=== PATIENT | male | born 1970 | race Caucasian/White ===

== ENCOUNTER 2016-10-12 07:46 | Observation (INO) | payer OTHER ==
[~2016-10-12] VITALS: Ht 180.3 cm; Wt 109.9 kg
[2016-10-12] VITALS (12 sets, daily range): BP systolic 124–160; BP diastolic 55–102; PULSE 62–88; RESP 14–22; O2SAT 94–97
[~2016-10-12 07:46] MED LIST: IBUP800T28 PO; OMEP20CA11 PO
--- NOTE | 2016-10-12 08:07 | ED.REPORT ---
HPI-Chest Pain 40 and Over Date of Service Oct 12, 2016 ED Provider: Noble Castaneda MD Patient is a 46 year old male with a history of hypertension and a minor DE with cardiac stent placement who presents to the ED complaining of chest pain over the past three weeks that is similar to pain associated with prior DE. He describes the pain as a heavy pressure and tightness on his chest that worsened markedly at 0600 this morning.The patient states that the pain radiates to his back. Associated symptoms include shortness of breath, weight gain, nausea, cough for the past six months, lightheadedness, dizziness and stress. He denies vomiting. Patient reports that he did not take his nitro because it makes him dizzy and gives him a headache. Prior to arrival to the ED, the patient took 81mg of ASA. The patient's father's side has a history of heart disease. Nursing Notes Stated Complaint: CHEST PAIN Chief Complaint: Chest Pain Nursing Notes Reviewed: Yes Allergies: Coded Allergies: erythromycin base (Verified Allergy, Unknown, 03/07/15) niacin (Verified Allergy, Unknown, 03/07/15) Scheduled Aspirin (Aspirin) 81 Mg Tablet 81 MG PO DAILY Atorvastatin (Lipitor) 40 Mg Tablet 40 MG PO HS Carvedilol (Carvedilol) 12.5 Mg Tablet 12.5 MG PO BID Clopidogrel Bisulfate (Plavix) 75 Mg Tablet 75 MG PO DAILY Ranitidine (Ranitidine) 150 Mg Capsule 150 MG PO BID General Time Seen by MD: 08:02 Chief Complaint Chest pain Hx Obtained From: Patient Arrived By: Walk-in Sudden in Onset?: Yes Onset Occurred: More than a week ago... (3 weeks) Symptom Duration: Intermittent Location: : Substernal Quality: Painful, Pressure Radiation: : Back Severity: Maximum: Pain level 7 out of 10 Recent Healthcare: Recent doctor visit Similar Sx Previous: Yes Past Medical History Past Medical History "Mild DE" - last year Hypertension CAD Hyperlipidemia Bipolar illness Past Surgical History left anterior descending stent placement cardiac cath Multiple Sclerosis spinal fusion 4-5-6 hip surgery Family History Reports: Coronary artery disease Smoking History Never Smoker Social History Alcohol Use: "Social" Drug Use: Denies drug use, In recovery Other Social History: Local resident 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 Physical Exam Initial Vital Signs Vital Signs (First) Date Time Temp Pulse Resp B/P Pulse Ox O2 Delivery O2 Flow Rate FiO2 10/12/16 07:50 36.3 88 18 160/93 97 Room Air Initial VS: Reviewed General/Constitutional: Awake, Alert Respiratory / Chest: Atraumatic, Breath sounds NL, Breath sounds = bilat, No respiratory distress Cardiovascular: Heart rate NL, Regular rhythm, Heart sounds NL Abdomen: Soft, Non-tender Neck: Supple LOWER EXTREMITIES: lower extremity edema Skin: Atraumatic, Color NL, No rash, Warm, Dry Neurologic: Oriented X3, Speech NL, No motor deficits, No sensory deficits Psychiatric: Affect NL, Mood NL Head / Eyes: Atraumatic, Normocephalic, PERRL, EOMI ENT: Airway patent, Mucous membranes moist Interpretation & Diagnostics Lab Results Interpretation Result Diagram: 10/12/16 0800 10/12/16 0800 Test 10/12/16 08:00 10/12/16 09:36 White Blood Count 8.4th/mm3 (3.8-10.1) Red Blood Count 5.21mil/mm3 (4.40-5.80) Hemoglobin 15.7g/dL (13.8-17.2) Hematocrit 45.2% (41.0-50.0) Mean Corpuscular Volume 86.8fL (81-100) Mean Corpuscular Hemoglobin 30.1pg (27.0-35.0) Mean Corpuscular Hemoglobin Concent 34.7% (32.0-37.0) Red Cell Distribution Width 12.4% (12.3-15.4) Platelet Count 213bil/L (150-400) Neutrophils (%) (Auto) 64.6% (40-74) Lymphocytes (%) (Auto) 20.2% (14-46) Monocytes (%) (Auto) 11.9% (4-12) Eosinophils (%) (Auto) 2.3% (0-5) Basophils (%) (Auto) 0.4% (0-3) Sodium Level 138mEq/L (134-144) Potassium Level 4.0mEq/L (3.5-5.2) Chloride Level 102mEq/L (97-108) Carbon Dioxide Level 22mmol/L (18-29) Blood Urea Nitrogen 10mg/dL (6-24) Creatinine 0.86mg/dL (0.76-1.27) Estimat Glomerular Filtration Rate 101mL/min (>59) Glucose Level 205mg/dL (60-99) Calcium Level 9.2mg/dL (8.5-10.1) Magnesium Level 1.9mg/dL (1.6-2.6) Total Bilirubin 0.8mg/dL (0.0-1.2) Aspartate Amino Transf (AST/SGOT) 28U/L (0-50) Alanine Aminotransferase (ALT/SGPT) 40U/L (0-44) Alkaline Phosphatase 86U/L (25-150) Troponin T 0.010ug/L (0.0-0.011) Total Protein 7.2g/dL (6.4-8.4) Albumin 4.4g/dL (3.4-5.0) Activated Partial Thromboplast Time 30.3sec (22.8-33.0) ECG Interpretation ECG Interpretation: Ventricular premature complex aberrant conduction of SV complex Time: 08:00 Interpreted by: ED physician Normal ECG Interpretation: Normal rate (82), Normal sinus rhythm X-Ray Chest Interpretation Chest Xray Interpretation: IMPRESSION: Acute disease is not found in the semi-upright portable chest. Cause of pain is not identified. Dictated by: Jostin Ramos M.D. on 10/12/2016 at 8:37 Approved by: Jostin Ramos M.D. on 10/12/2016 at 8:38 View: Portable, 1 view Interpretation / Wet Read by: Interpret - Radiologist Re-Eval/Medical Decision Med Decision/Clinical Course 46-year-old male history of CAD, stent placed in April 2016 at outside hospital presenting with chest pain that woke him up this morning. He reports it is the same pain he had when he had his stent placed. His chest pain is resolved or he still reports some chest tension. He has been getting chest tension quite often the last week with some episodes of chest pain as well. Not relieved with nitroglycerin or morphine here. No EKG changes. First set troponin is negative. Discussed with liaison officer and we will admit for ACS rule out on heparin drip. Source of Hx: Old records Time of Eval: 09:49 Re-Evaluation/Progress Note: Discussed lab and radiology results and need for admission. Patient is amenable to the plan. All other questions addressed. Consultation #1: Referral / Consult Name: Munir Raygoza MD Consulted With: Cardiology Call Returned at: 09:17 Billboard Poster: Agrees with eval, Agrees with plan Note: Admit. Start heparin drip. Consultation #2: Referral / Consult Name: Quinton Kim MD Consulted With: Hospitalist Call Returned at: 10:19 Billboard Poster: Agrees with eval, Agrees with plan, Accepts admit Counseled Regarding: Diagnosis, Lab results, Need for admission Discharge & Departure Primary Impression: Chest pain Disposition: ADMITTED TO HOSPITAL Discharge Condition All VS Reviewed: Yes Condition: Stable Referrals: NOPCP (PCP) Crit Care Except Billable Proc Time Spent: 30-74 minutes Services Performed: Patient management by me, Time spent at bedside, Reviewing test results, Reviewing imaging, Discussing patient care, Documentation in record Scribe Attestation Portions of this note were transcribed by Suzy Roberto and Stu Granado. I, Dr. Castaneda personally performed the history, physical exam and medical decision-making; I reviewed and confirmed the accuracy of the information in the transcribed note. Signed by: Suzy Roberto and Stu Granado, Scribe, and 10:30 Noble Castaneda MD Oct 12, 2016 08:07 Yazmin Roberto Oct 12, 2016 08:11 STU GRANADO Oct 12, 2016 09:18
[2016-10-12 08:15] LABS: BASOPHILS % (AUTO) 0.4 % (0-3); EOSINOPHILS % (AUTO) 2.3 % (0-5); MONOCYTES % (AUTO) 11.9 % (4-12); Mean Corpuscular Hemoglobin 30.1 pg (27.0-35.0); Mean Corpuscular Volume 86.8 fL (81-100); NEUTROPHILS % (AUTO) 64.6 % (40-74); Platelet Count 213 bil/L (150-400)
[2016-10-12] MEDS ORDERED: CARV12.52 PO (08:25)
[2016-10-12] MEDS ORDERED: CLOP75TA3 PO (08:25)
[2016-10-12] MEDS ORDERED: LIP40 PO (08:26)
[2016-10-12] MEDS ORDERED: ASPI-973 PO (08:27)
[2016-10-12] MEDS ORDERED: RANI150C4 PO (08:27)
[2016-10-12 08:38] LABS: TROPONIN T 0.01 ug/L (0.0-0.011)
--- NOTE | 2016-10-12 08:45 | DRSVH ---
PROCEDURE: X-RAY CHEST ONE VIEW, PORTABLE ([id number]) INDICATIONS: cp TECHNIQUE: One view of the chest was acquired. COMPARISON: [facility], CR, XR CHEST 2VW, 08/16/2016, 17:24. FINDINGS: Surgical changes and devices: There's been previous cervical thoracic spine surgery anteriorly as not ed by a plate and screws. electronic device monitor leads are seen over the chest. Lungs and pleura: No pleural effusions or pneumothorax. Lungs are clear. Mediastinum: Mediastinal contours appear normal. Heart size is normal. Bones and chest wall: No suspicious bony lesions. Overlying soft tissues appear unremarkable. IMPRESSION: Acute disease is not found in the semi-upright portable chest. Cause of pain is not ident ified. Dictated by: Jostin Ramos M.D. on 10/12/2016 at 8:37 Approved by: Jostin Ramos M.D. on 10/12/2016 at 8:38
[2016-10-12 08:50] LABS: Magnesium 1.9 mg/dL (1.6-2.6)
[2016-10-12] MEDS: Ondansetron 2 mg/mL 2 mL Inj IVPUSH PRN ×5 (08:57→18:21)
[2016-10-12] MEDS ORDERED: Heparin 5,000 Unit/mL Inj IVPUSH ONE (09:35)
[2016-10-12] MEDS ORDERED: Heparin 25K Unit/500mL 0.45 NS 25,000 UNIT in IV Premix 1 EACH IV ONE (09:35)
[2016-10-12] MEDS ORDERED: Alum-Mag Hydrox-Simeth 30 mL Suspension PO PRN ×2 (10:25→11:30)
[2016-10-12] MEDS ORDERED: Ondansetron 2 mg/mL 2 mL Inj IVPUSH PRN (10:25)
[2016-10-12] MEDS: 0.9% Sodium Chloride 1,000 ML IV SCH (11:26)
[2016-10-12] MEDS ORDERED: Polyethylene Glycol (PEG) 17 Gm Powder PO PRN (11:30)
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
[2016-10-12] MEDS ORDERED: Heparin 25K Unit/500mL 0.45 NS 25,000 UNIT in IV Premix 1 EACH IV SCH (15:50)
[2016-10-12] MEDS ORDERED: Heparin 5,000 Unit/mL Inj IVPUSH PRN (15:50)
--- NOTE | 2016-10-12 16:21 | NUR ---
[place] [facility] Patient report given to [facility] nurse from [facility]. Patient transferred to [facility] room 3012 at 1421 via gurney from ED. Patient transferred to bed independently. Patient vitals stable patient on Heparin drip. Patient had no skin issues noted.
[2016-10-12] MEDS: Sodium Chloride LOK Flush 10 mL Syringe IVFLUSH SCH ×2 (16:30→22:46)
--- NOTE | 2016-10-12 18:06 | NUR ---
Chest pressure Patient reported chest pressure of 7/10. SL Nitro was administered X1 and lowered pressure to 6/10. Patient refused a second dose worrying about headache. Patient had excessive stress and commotion in room from family at that time. It was mentioned to patient and family that the environment needed to be more relaxed and soon patient chest pressure decreased to 5/10.
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
[2016-10-12] MEDS: Senna-Docusate 8.6-50 mg Tablet PO PRN (19:49)
[2016-10-13] VITALS (7 sets, daily range): BP systolic 108–139; BP diastolic 66–94; PULSE 64–91; RESP 18–20; O2SAT 94–97
[2016-10-13] MEDS ORDERED: LORazepam 0.5 mg Tablet PO ONE (00:40)
[2016-10-13] MEDS: 0.9% Sodium Chloride 1,000 ML IV SCH ×2 (02:22→16:32)
[2016-10-13] MEDS: diphenhydrAMINE 25 mg Capsule PO PRN (03:16)
--- NOTE | 2016-10-13 03:28 | NUR ---
Chest Pain Pt reported chest pain at beginning of shift. Prior shift RN reported SL nitro to be effective. This was offered to PT and Pt declined, reported that the nitro was only minimally effective and that his chest pain was a 6/10, but that the fabienne had given him a 10/10 head ache. Pt was given 2mg of morphine. This helped his pain but did not resolve it entirely. Pt was later given another 2 mg of morphine IV and this did eliminate his pain. Later on in shift Pt c/o chest pain again and received 4mg of morphine IV and this was effective and eliminated his pain. Pt has not required any further dosing of morphine so far this shift.
[2016-10-13 04:10] LABS: BASOPHILS % (AUTO) 0.4 % (0-3); EOSINOPHILS % (AUTO) 2.9 % (0-5); MONOCYTES % (AUTO) 12.8 % (4-12); Mean Corpuscular Hemoglobin 30.4 pg (27.0-35.0); Mean Corpuscular Volume 88.7 fL (81-100); NEUTROPHILS % (AUTO) 51.9 % (40-74); Platelet Count 207 bil/L (150-400)
[2016-10-13] MEDS: Ondansetron 2 mg/mL 2 mL Inj IVPUSH PRN ×4 (05:00→21:16)
[2016-10-13 06:13] LABS: TROPONIN T 0.01 ug/L (0.0-0.011)
[2016-10-13] MEDS: Sodium Chloride LOK Flush 10 mL Syringe IVFLUSH SCH ×2 (08:30→16:30)
[2016-10-13] MEDS ORDERED: Benzocaine-Menthol Lozenge 2/Pkg PO PRN (10:15)
[2016-10-13] MEDS: Senna-Docusate 8.6-50 mg Tablet PO PRN (11:32)
--- NOTE | 2016-10-13 14:37 | NUR ---
took over patient care [id number]
--- NOTE | 2016-10-13 17:09 | PCM.PNMED ---
Subjective Date of Service Oct 13, 2016 Subjective reports continued chest pressure although much improved since admission. denies any other new issues/complaints. Exam Vital Signs Vital Sign - Last Date Time Temp Pulse Resp B/P Pulse Ox O2 Delivery O2 Flow Rate FiO2 10/13/16 15:45 36.7 73 20 137/90 95 Room Air 10/12/16 21:47 2.00 Intake and Output 10/12/16 10/12/16 10/13/16 Cumulative From/Thru 15:00 23:00 07:00 10/12/16 07:50 - 10/13/16 06:37 Intake Total 85 ml 2165 ml 2250 ml Output Total 1 ml 1775 ml 1776 ml Balance 84 ml 390 ml 474 ml Intake Oral 1630 ml 1630 ml IV Total 85 ml 535 ml 620 ml Output Urine Total 1 ml 1775 ml 1776 ml # Bowel Movements 0 0 General: Alert, Cooperative, No Acute Distress Head: Normal Eyes: Scleral Anicteric Nose: Mucous Membr Moist/[place] Mouth: Mucous Membr Moist/[place] Neck: Supple Chest & Lungs: Chest Wall Normal, Clear to auscultation & percussion Cardiovascular: Regular Rate/Rhythm Abdomen: Non-tender, Non-distended, Normoactive bowel tones, Soft Extremities: No cyanosis/clubbing/edma bilat Neurological: Grossly Neurologically Intact, Normal Speech IVs and Medications Medications Reviewed: Medications were reviewed in detail Lab and Diagnostics Result Diagram: 10/13/1635410/13/16354 X-Rays, CTs and MRIs Chest x-ray is unremarkable 12-lead ECG Sinus rhythm with no ST segment changes. Assessment & Plan 46-year-old male with known history of CAD who had LAD stenting last April. He presents now with several days of stuttering chest pressure. # Acute chest pain, POA. - This is been ongoing for several days. - Ruled out for ACS by negative serial Troponin - Discussed with cardiology (Dr. Fisher) who recommend stopping Heparin drip and pursuing a stress test. If stress test negative given normal Troponins cardiology does not plan to consult. If stress test positive cardiology will see the patient. - Continue with other home cardiac medications # Essential hypertension, POA. This is relatively controlled. - Continue his usual medications and up titrate as necessary. # Hyperlipidemia - High-dose atorvastatin 80 daily. Dispo: possibly home tomorrow pending stress test results. Resuscitation Status: CPR: Attempt Resuscitation Time spent 35 min Johny Swenson Oct 13, 2016 17:09
--- NOTE | 2016-10-13 18:00 | NUR ---
Heparin Drip Discontinued Heparin drip d/c'd. Patient scheduled for stress test 4/15 AM. NPO after midnight.
--- NOTE | 2016-10-13 23:56 | NUR ---
restless / anxious patient anxious and restless. states "i've been here for 2 days and i haven't seen the formula mixer." listed to patient's concerns. reassured that patient will see the doctor in the am with the lexiscan scheduled at 0900 requests ativan for sleep. requests to be saline locked. notified DR Murphy of above via ITeam. DR Murphy called back. cookie ordered, and given orders to saline lock. tidied patient's room, given emotional support. care ongoing. Addendum: 10/14/16 at 0018 by JAYCOB NICHOLE RN given ativan 1mg po. given benadryl 25mg for generalized itchiness. saline locked. plan to keep quiet environment to promote rest.
[2016-10-14] MEDS ORDERED: LORazepam 1 mg Tablet PO ONE
[2016-10-14 00:03] VITALS: BP 132/90; PULSE 77; RESP 18; O2SAT 96
[2016-10-14] MEDS: diphenhydrAMINE 25 mg Capsule PO PRN (00:11)
[2016-10-14] MEDS: Sodium Chloride LOK Flush 10 mL Syringe IVFLUSH SCH ×2 (00:11→11:12)
[2016-10-14] MEDS: 0.9% Sodium Chloride 1,000 ML IV SCH (00:39)
[2016-10-14 06:02] LABS: Mean Corpuscular Hemoglobin 30.8 pg (27.0-35.0); Mean Corpuscular Volume 87.9 fL (81-100)
[2016-10-14 06:03] VITALS: PULSE 70
--- NOTE | 2016-10-14 06:22 | NUR ---
sleep patient slept well. no complaints of pain. maintained quiet environment, minimized disruptions, as per patient request. care ongoing.
[2016-10-14 06:33] VITALS: BP 114/67; PULSE 57; RESP 18; O2SAT 97
--- NOTE | 2016-10-14 08:49 | NUR ---
Off to [facility] pt off unit now for scan via . Tele notified. Pt c/o CP at 10/09, no pressure, pain better now than on admission. Addendum: 10/14/16 at 1132 by KIM ADAMS RN Pt returned short while ago. Back on tele. Denies pain. AM meds given late d/t being NPO for AM [facility] scan.
--- NOTE | 2016-10-14 08:55 | NUR ---
Social Work: Screening Data: Pt is a 46 y/o male admitted for chest pain. Pt's PCP is not listed. Pt's insurance is [employer]. EMR reviewed. Readmit score is 1, low. No HIV CTS SPECIALIST needs anticipated at this time. HIV CTS SPECIALIST will continue to follow if needs arise. Assessment: Pt who is independent at baseline. Plan: Pt will d/c home via POV when medically stable. No HIV CTS SPECIALIST needs anticipated at this time. HIV CTS SPECIALIST will continue to follow if needs arise. ASTRID Devine
[2016-10-14 10:54] VITALS: BP 143/65; PULSE 90; RESP 16; O2SAT 96
[2016-10-14] MEDS: Ondansetron 2 mg/mL 2 mL Inj IVPUSH PRN (11:14)
[2016-10-14 11:57] VITALS: PULSE 97
--- NOTE | 2016-10-14 12:07 | NUR ---
Social Work: Discharge Data: Pt is on day 2 of hospitalization. EMR reviewed, d/c orders are in. No d/c planning needs at this time. ELECTRICAL INSTALLATION SUPERVISOR will continue to follow if needs arise. Assessment: Pt who is independent at baseline. Plan: Pt will d/c home via POV today. No d/c planning needs at this time. ELECTRICAL INSTALLATION SUPERVISOR will continue to follow if needs arise. ASTRID Devine
--- NOTE | 2016-10-14 14:20 | PCM.DIMED ---
Discharge Instructions Date of Service Oct 14, 2016 Dates of Hospitalization Oct 12, 2016 at 15:13 Discharge Diagnosis Discharge Diagnosis # Acute chest pain, present on admission - Ruled out for acute myocardial infraction by negative serial Troponins and with negative myocardial perfusion study (stress test) # Essential hypertension, present on admission. Stable # History of hyperlipidemia Medication Instructions Resume your home medications as before Diet Low fat, Low Sodium, Heart Healthy Activity No restrictions Call your provider Fever or Chills, Shortness of breath, Chest pain, Vomitting Patient Instructions Seek immediate medical attention if any new or worsening signs or symptoms occur. Follow-up plan 1. Followup with primary care provider in 5-7 days 2. Followup with your plumbing drafter within one week. Johny Swenson Oct 14, 2016 14:20
[2016-10-14 14:33] VITALS: BP 133/89; PULSE 73; RESP 18; O2SAT 97
--- NOTE | 2016-10-14 15:20 | DRSVH ---
PROCEDURE PERFORMED: Pharmacologic vasodilator stress only myocardial perfusion imaging with gating to assess ejection fraction and regional wall motion. RADIOPHARMACEUTICAL: Stress: 24.4 mCi of technetium-99 tetrofosmin. INDICATIONS: The patient is a 46-year-old male with atypical, persistent chest discomfort with mila l troponins but a history of LAD stenting. COMPARISON: None. PHARMACOLOGIC VASODILATOR STRESS: The patient presented to the cardiovascular lab having ongoing max st discomfort at a level of 2/10, which he has had persistently with negative troponins. He was give n 0.4 mg of Lexiscan with some dyspnea and nausea and slight worsening of his chest discomfort up to a level of 5/10. He had a normal hemodynamic response to Lexiscan and his resting ECG was normal and there were no ST segment shifts or arrhythmia with stress. He was given 125 mg of aminophylline IV with some improvement in his symptoms as well as a sublingual nitroglycerin with further improvement. FINDINGS: 1. Raw Data: There is fair myocardial tracer uptake without any obvious evidence for increased lung uptake. 2. Quantitative gated SPECT: Post-stress ejection fraction is calculated to be 56%, although visual ly appears to be higher than this. There are no focal wall motion abnormalities. End diastolic volu me is estimated at 117 mL, but likely is somewhat smaller than this. 3. Myocardial Perfusion Imaging: Post-stress supine images show a normal perfusion pattern without any perfusion defects, supported by normal perfusion imaging in the prone position. CONCLUSION: 1. Normal myocardial perfusion study. 2. No evidence for myocardial ischemia or previous myocardial infarction on the stress images. Ther efore, it is felt that rest images are not needed. 3. Normal left ventricular systolic function without any focal wall motion abnormality. 4. While the patient had some chest discomfort with Lexiscan administration, he had baseline chest d iscomfort persistently with normal troponins. Furthermore, there were no ST segment shifts to sugges t ischemia. Given this, and his normal perfusion imaging, it is likely that his chest discomfort is noncardiac. Dictated by: Edmund Fisher M.D. on 10/14/2016 at 12:20 Transcribed by: KIMMIE on 10/14/2016 at 18:20 Approved by: Edmund Fisher M.D. on 10/15/2016 at 16:14 cc: Johny Swenson MD
--- NOTE | 2016-10-14 15:37 | NUR ---
Discharge/Upset Pt d/c home with son at 1530 via wc by primary RN. Pt denied pain. IV d/c prior to leaving. VSS. Lots of education and reassurance provided and pt encouraged to follow up with PCP and Cardiology. All personal belongings left with pt. Pt was to discharge earlier in the day but stayed demanding cardiology to see him. Hospitalist notified. Cardiology was able to see pt at bedside. Pt was expecting to have an angio done d/t "extensive personal and family history" although at this visit, troponins had been negative along with SEGUN scan from this AM. Pt further expressed his distrust in staff and equipment this AM. "if Georgian isn't your primary language, I can't trust what you're saying" ...referring to a "Congolese lady downstairs". Regarding technology, "the equipment downstairs is from 1948, I have pictures to prove it"
--- NOTE | 2016-10-14 16:36 | PCM.DC.MED ---
Discharge Summary Date of Service Oct 14, 2016 Dates of Hospitalization Date of Hospital Admission Oct 12, 2016 at 15:13 Date of Discharge: Oct 14, 2016 Providers: Admitting Physician: Quinton Kim MD Primary Care Physician: Nopgeorge Attending Physician: Quinton Kim MD Diagnosis at Time of Discharge Diagnosis at Time of Discharge # Acute chest pain, present on admission - Ruled out for acute myocardial infraction by negative serial Troponins and with negative myocardial perfusion study (stress test) # Essential hypertension, present on admission. Stable # History of hyperlipidemia Procedures XRay, CTs & MRIs Date of Service: 10/12/16 0756 PROCEDURE: X-RAY CHEST ONE VIEW, PORTABLE ([id number]) IMPRESSION: Acute disease is not found in the semi-upright portable chest. Cause of pain is not identified. Dictated by: Jostin Ramos M.D. on 10/12/2016 at 8:37 Approved by: Jostin Ramos M.D. on 10/12/2016 at 8:38 Cardiac Echo Impression Date of Service: 10/14/16 1202 PROCEDURE PERFORMED: Pharmacologic vasodilator stress only myocardial perfusion imaging with gating to assess ejection fraction and regional wall motion. CONCLUSION: 1. Normal myocardial perfusion study. 2. No evidence for myocardial ischemia or previous myocardial infarction on the stress images. Therefore, it is felt that rest images are not needed. 3. Normal left ventricular systolic function without any focal wall motion abnormality. 4. While the patient had some chest discomfort with Lexiscan administration, he had baseline chest discomfort persistently with normal troponins. Furthermore, there were no ST segment shifts to suggest ischemia. Given this, and his normal perfusion imaging, it is likely that his chest discomfort is noncardiac. Dictated by: Edmund Fisher M.D. on 10/14/2016 at 12:20 Transcribed by: KIMMIE on 10/14/2016 at 18:20 Brief History 46-year-old male with known history of CAD who had LAD stenting last April. He presents now with several days of stuttering chest pressure. Hospital Course # Acute chest pain, present on admission. - Unclear etiology but with negative cardiac workup during this hospital. - This is been ongoing for several days. 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 # Essential hypertension, POA. This is relatively controlled. - Continue his usual medications. # Hyperlipidemia - continue Atorvastatin by day of discharge lungs clear to auscultation bilaterally. CV: RRR. Exam Vital Signs (Last) Date Time Temp Pulse Resp B/P Pulse Ox O2 Delivery O2 Flow Rate FiO2 10/14/16 14:33 36.6 73 18 133/89 97 Room Air 10/12/16 21:47 2.00 Test 10/12/16 08:00 10/12/16 09:35 10/13/16 03:55 10/13/16 15:55 Total Bilirubin 0.8mg/dL (0.0-1.2) Aspartate Amino Transf (AST/SGOT) 28U/L (0-50) Alanine Aminotransferase (ALT/SGPT) 40U/L (0-44) Alkaline Phosphatase 86U/L (25-150) Total Protein 7.2g/dL (6.4-8.4) Albumin 4.4g/dL (3.4-5.0) Hemoglobin A1c 6.3% (4.8-5.6) Magnesium Level 2.0mg/dL (1.6-2.6) Total Creatine Kinase 293U/L (21-232) Creatine Kinase MB 6.2ng/mL (0.0-10.4) Creatine Kinase MB % 2.1% (0.0-5.0) Thyroid Stimulating Hormone (TSH) 2.050uIU/mL (0.450-4.500) Neutrophils (%) (Auto) 51.9% (40-74) Lymphocytes (%) (Auto) 31.5% (14-46) Monocytes (%) (Auto) 12.8% (4-12) Eosinophils (%) (Auto) 2.9% (0-5) Basophils (%) (Auto) 0.4% (0-3) Sodium Level 139mEq/L (134-144) Potassium Level 4.0mEq/L (3.5-5.2) Chloride Level 104mEq/L (97-108) Carbon Dioxide Level 21mmol/L (18-29) Blood Urea Nitrogen 13mg/dL (6-24) Creatinine 0.94mg/dL (0.76-1.27) Estimat Glomerular Filtration Rate 91mL/min (>59) Glucose Level 145mg/dL (60-99) Calcium Level 8.7mg/dL (8.5-10.1) Troponin T 0.010ug/L (0.0-0.011) Triglycerides Level 269mg/dL (0-149) Cholesterol Level 97mg/dL (100-199) LDL Cholesterol, Calculated 14.200mg/dL (0-99) VLDL Cholesterol 53.800mg/dL HDL Cholesterol 29mg/dL (>39) Cholesterol/HDL Ratio 3.34 (0.0-4.4) Activated Partial Thromboplast Time 43.9sec (22.8-33.0) Test 10/14/16 05:30 White Blood Count 8.3th/mm3 (3.8-10.1) Red Blood Count 4.80mil/mm3 (4.40-5.80) Hemoglobin 14.8g/dL (13.8-17.2) Hematocrit 42.2% (41.0-50.0) Mean Corpuscular Volume 87.9fL (81-100) Mean Corpuscular Hemoglobin 30.8pg (27.0-35.0) Mean Corpuscular Hemoglobin Concent 35.1% (32.0-37.0) Red Cell Distribution Width 12.3% (12.3-15.4) Platelet Count 202bil/L (150-400) Discharge Medications Discharge Medications Aspirin (Aspirin) 81 Mg Tablet 81 MG PO DAILY (Reported) Atorvastatin (Lipitor) 40 Mg Tablet 40 MG PO HS (Reported) Carvedilol (Carvedilol) 12.5 Mg Tablet 12.5 MG PO BID (Reported) Clopidogrel Bisulfate (Plavix) 75 Mg Tablet 75 MG PO DAILY (Reported) Ranitidine (Ranitidine) 150 Mg Capsule 150 MG PO BID (Reported) Additional med instructions Resume your home medications as before Followup Plan Disposition: Home Follow-up plan 1. Followup with primary care provider in 5-7 days 2. Followup with your commercial lines sales executive within one week. Discharge Diet: Low fat, Low Sodium, Heart Healthy Discharge Activity: No restrictions Patient Instructions Seek immediate medical attention if any new or worsening signs or symptoms occur. Time spent 35 min Johny Swenson Oct 14, 2016 16:36
--- NOTE | 2016-10-15 03:45 | CONS ---
[address] [address] CONSULTATION REPORT PATIENT: TOMY DING : 1970 MR#: [id number] ADMIT: 10/12/2016 JOB ID: [id number] DATE OF SERVICE: 10/14/2016 IDENTIFICATION: Dr. Johny Swenson asked that I consult on this 46-year-old male, who insists on seeing a veterans contact representative despite a normal cardiac evaluation. HISTORY: The patient is a somewhat rambling historian, but states that he has had previous cardiac catheterizations in 2011 and 2012 with "borderline" blockages, but ultimately underwent a stenting procedure at [facility] in March 2016, with relief of his chest discomfort following that. He also has a history of bipolar disorder and anxiety. Following his stenting, he generally did well but has been seen in the emergency department on multiple occasions over the last several years for a variety of discomforts including chest discomfort, dyspnea, weakness and concerns for possible CVA, all with negative evaluations. Over the last four weeks, he has had recurrence of his previously described chest discomfort which he describes as a squeezing, pressure-like sensation, occasionally accompanied by a sharp stabbing discomfort in the mid chest, radiating into the back and up into the jaw. It is unrelated to exertion and can last 1-2 hours at a time. It comes on mostly with psychological stress which he has had been under more so recently because of a recent hospitalization for his son who has some behavioral disorders and was hospitalized following a stabbing. Over the last four weeks, he has continued to note these episodes and eventually presented here. Here, his EKG was normal on presentation, has remained normal. Given his history, he was initially heparinized, but serial troponins have remained normal despite prolonged periods of chest discomfort. He underwent a nuclear perfusion imaging study today, initially scheduled as an exercise treadmill test, but he refused to do so and instead did a Lexiscan, because of complaints of some knee pain. At the time of the pharmacologic stress, he continued to have persistent chest discomfort that worsened slightly with Lexiscan, but there were no EKG changes. Subsequent perfusion imaging has shown completely normal perfusion without any perfusion defects. His ejection fraction is 60% without any focal wall motion abnormality. CARDIAC RISK FACTORS: He has notable hypertension, with blood pressures in the 150-180 range on his previous ED visits. Here, his blood pressure has been better controlled in the 110-140 range. He has known hyperlipidemia but is well controlled, with the current total cholesterol of 97, with an HDL of 29. His triglycerides are elevated at 269, making his LDL measurement invalid. He has no previous history of diabetes, although his glucose on admission was 205 and his A1c was 6.3. He has never smoked. Family history is notable for a father who had an MN at 47 and a brother at age 42. PAST MEDICAL HISTORY: Notable for bipolar disorder and anxiety. History of spinal fusion. History of hip surgery. HOME MEDICATIONS: 1. Aspirin 81 mg daily. 2. Atorvastatin 40 mg daily. 3. Carvedilol 12.5 mg b.i.d. 4. Clopidogrel 75 mg daily. 5. Ranitidine 150 mg b.i.d. He states that he has been compliant with his medications. FAMILY HISTORY: As above. SOCIAL HISTORY: The patient is moving from [place] to [place]. He does not drink any alcohol, and stopped in March 2016. He has a son who has some behavior disorders and appears to be autistic. REVIEW OF SYSTEMS: As reviewed in previous notes, and is notable for occasional hot flashes but no fevers or chills. He has had occasional hemorrhoidal bleeding but no other peptic ulcer disease. Denies any genitourinary complaints. He notes occasional tingling in his extremities but no stroke-like symptoms. He complains of dizziness which sounds more like vertigo. PHYSICAL EXAM: Mildly obese, middle-aged male, in no acute distress, with some slightly pressured talking but overall appears to be cordial and appropriate. HR: 90. BP 143/65, O2 saturation 96% on room air. Weight 109.9 kg. Skin: Warm and dry. HEENT : EOMI without arcus. Lungs: Clear bilaterally to auscultation and percussion. CV: Nonpalpable PMI with a regular rate and rhythm with a normal S1 and S2 without any appreciable murmurs, gallops or rubs. JVP is 4 cm. Carotid pulses are 2+ bilaterally with normal upstroke without bruit. Abdomen: Soft, nondistended, nontender, without any palpable masses or organomegaly. Extremities: Warm without any clubbing, cyanosis, or edema. Neuro: Moves all four extremities. Psych: Awake, alert. LABORATORY: Troponins have remained 0.01 or less. His initial CK was mildly elevated at 293, but with an MB of only 6.2 (2.1%). TSH was 2.05. BUN of 13, creatinine 0.9. Blood sugar this morning was 145. Hematocrit 42%. Chest x-ray: No acute pathology. ECG: Shows sinus rhythm without any ST-segment changes or evolutionary changes. IMPRESSION: 1. Atypical chest discomfort. Given the prolonged periods of his chest discomfort with negative ischemic evaluation, including negative serial troponins and normal ECG as well as his normal perfusion imaging, I think the likelihood of this reflecting underlying coronary disease is extremely low. He states that he wants an angiogram because the stent the last time he presented with the symptoms relieved those symptoms. I suspect that his symptoms are more likely related to psychological stress and perhaps with some exacerbation with situational hypertension. I have counseled him that his presentation is low risk for any type of heart attack. I have encouraged him to follow up with his veterans contact representative in [place] to further discuss, where they can review his previous catheterization results. In the meantime, I would continue with aggressive blood pressure and lipid control. His blood pressures here have been relatively well controlled. 2. Probable diabetes. I suggested he follow up with a primary care physician to address his blood sugar issues. 3. Hyperlipidemia, with elevated triglycerides. This may improve with better blood sugar control and exercise. RECOMMENDATION: 1. I think the patient can be discharged today. Continue his current medications. He should follow up with his [place] veterans contact representative for further evaluation and treatment. 2. He should track his blood pressures at home and follow up with his primary care provider for both blood pressure and blood sugar issues as well as his hyperlipidemia. TIME SPENT: I spent 50 minutes reviewing the patient's record, interviewing and examining the patient, and documenting such.
== END 2016-10-14 15:45 | disposition home or self-care (01) ==
LOC: SED 07:46 → MPC 15:13
PROVIDERS: ADMIT Hospitalist; ATTEND Hospitalist
DX: R07.89 Other chest pain (principal); I25.10 Atherosclerotic heart disease of native coronary artery without angina pectoris; I10 Essential (primary) hypertension; E78.5 Hyperlipidemia, unspecified; F41.9 Anxiety disorder, unspecified; Z98.61 Coronary angioplasty status; R73.9 Hyperglycemia, unspecified; Z79.82 Long term (current) use of aspirin; Z79.899 Other long term (current) drug therapy
CPT/HCPCS: 36415; 71010; 78451; 80048; 80053; 80061; 82274; 82550; 82553; 83036; 83735; 84443; 84484; 85025; 85027; 85730; 93005; 93017; 96361; 96374; 96375; 96376; 99291; A9502; G0378; J0280; J1644; J2270; J2405; J2785; J7030

== ENCOUNTER 2016-10-18 22:12 | Emergency (ER) | payer OTHER ==
[~2016-10-18] VITALS: Ht 180.3 cm; Wt 112.7 kg
[~2016-10-18 22:12] MED LIST changes: +ASPI-973 PO; +CARV12.52 PO; +CLOP75TA3 PO; -IBUP800T28 PO; +LIP40 PO; -OMEP20CA11 PO; +RANI150C4 PO
[2016-10-18 22:15] VITALS: BP 192/103; PULSE 90; RESP 16; O2SAT 95
--- NOTE | 2016-10-18 22:37 | ED.REPORT ---
HPI-General Illness Date of Service Oct 18, 2016 ED Provider: Sal Mcbride MD 46 year old male with a history of VA, CAD, cardiac stent placement, and HTN presents to the ER complaining of ten days of "pressure" headache, worsening today with an episode of severe dizziness described as a spinning sensation with accompanying facial numbness, right greater than left. Patient states that he may have blacked out, and was having difficulty remembering details of this episode but states this could just be due to exhaustion. He also reports a month of similar pressure headache, dull chest pressure relieved with NTG, and intermittent episodes of dizziness for the past month. Associated symptom of nausea . Patient denies double vision, cough, and vomiting. He reports significant stress and anxiety over the past month surrounding his child being hospitalized, as well as his own health issues. Nursing Notes Stated Complaint: HEAD PAIN/TINGLE IN RIGHT SIDE FACE Chief Complaint: General Complaint Nursing Notes Reviewed: Yes Allergies: Coded Allergies: Fish Containing Products (Verified Allergy, Severe, Shortness of Breath, ) niacin (Verified Allergy, Severe, Shortness of Breath, 10/18/16) shellfish derived (Verified Allergy, Severe, Shortness of Breath, 10/18/16) lactose (Verified Allergy, Mild, Diarrhea, 10/18/16) erythromycin base (Verified Allergy, Unknown, 10/12/16) Scheduled Aspirin (Aspirin) 81 Mg Tablet 81 MG PO DAILY Atorvastatin (Lipitor) 40 Mg Tablet 40 MG PO HS Carvedilol (Carvedilol) 12.5 Mg Tablet 12.5 MG PO BID Clopidogrel Bisulfate (Plavix) 75 Mg Tablet 75 MG PO DAILY Meclizine (Bonine) 25 Mg Tab.chew 25 MG PO TID Ranitidine (Ranitidine) 150 Mg Capsule 150 MG PO BID General Time Seen by MD: 22:36 Chief Complaint Headache Hx Obtained From: Patient Arrived By: Walk-in Sudden in Onset?: No Onset Occurred: More than a week ago... (1 month) Symptom Duration: Since onset Location: : Head Quality: Pressure Severity: Current: Moderate Severity: Maximum: Moderate Associated with: Reports: Chest pain, Dizziness, Nausea, Denies: Cough Context Related History: Reports Coronary artery disease Recent Healthcare: Recent doctor visit Similar Sx Previous: Yes Past Medical History Past Medical History "Mild VA" - last year Hypertension CAD Hyperlipidemia Bipolar illness Past Surgical History left anterior descending stent placement cardiac cath Multiple Sclerosis spinal fusion 4-5-6 hip surgery Family History Reports: Coronary artery disease Smoking History Never Smoker Social History Alcohol Use: "Social" Drug Use: Denies drug use, In recovery Other Social History: Local resident Occupation [employer] Ambulatory Status Independent Review of Systems Full Review of Systems Constitutional: Denies: Chills, Fever Eyes: Denies: Diplopia Respiratory: Denies: Non-productive cough, Prod cough, bloody, Prod cough, brown, Prod cough, clear, Prod cough, green, Prod cough, white, Prod cough, yellow, Shortness of breath Cardiovascular: Reports: Chest pain GI: Reports: Nausea, Denies: Vomiting Neurologic: Reports: Dizziness, Headache, Numbness (Facial), Spinning sensation Psychiatric: Reports: Anxiety, Stress Complete sys rev & neg: except as marked. Physical Exam Vital Signs Vital Signs Date Time Temp Pulse Resp B/P Pulse Ox O2 Delivery O2 Flow Rate FiO2 10/19/16 02:38 69 14 147/88 95 Room Air 10/19/16 01:31 78 14 124/76 95 Room Air 10/19/16 00:12 72 14 150/85 97 Room Air 10/18/16 22:15 36.7 90 16 192/103 95 Room Air Initial VS: Reviewed Head / Eyes: Atraumatic, Normocephalic Abdomen / GI: Soft, Non-tender, No guarding, No rebound, No distention Extremities: Vascular intact, Neuro intact, No swelling, No tenderness Skin: Warm, Dry, No cyanosis Neurologic: Nonfocal General/Constitutional: Awake, Alert, Well developed Behavior: Positive: Anxious Neck: Supple, Full range of motion, No midline vertebral tend Tender over thyroid, becomes nauseated with palpation. Respiratory / Chest: Breath sounds NL, No respiratory distress, No rales, No rhonchi, No wheezing Cardiovascular: Heart rate NL, Regular rhythm, Heart sounds NL, Cap refill not delayed, Peripheral circulation NL Neurologic: Oriented X3, Speech NL, No motor deficits, No sensory deficits Interpretation & Diagnostics Lab Results Interpretation Result Diagram: 10/18/16225810/18/16 225 Test 10/18/16 22:59 10/19/16 00:46 White Blood Count 9.4th/mm3 (3.8-10.1) Red Blood Count 5.07mil/mm3 (4.40-5.80) Hemoglobin 15.3g/dL (13.8-17.2) Hematocrit 44.2% (41.0-50.0) Mean Corpuscular Volume 87fL (81-100) Mean Corpuscular Hemoglobin 30.2pg (27.0-35.0) Mean Corpuscular Hemoglobin Concent 34.6% (32.0-37.0) Red Cell Distribution Width 12.5% (12.3-15.4) Platelet Count 226bil/L (150-400) Neutrophils (%) (Auto) 55.6% (40-74) Lymphocytes (%) (Auto) 26.6% (14-46) Monocytes (%) (Auto) 14.5% (4-12) Eosinophils (%) (Auto) 2.9% (0-5) Basophils (%) (Auto) 0.4% (0-3) Sodium Level 138mEq/L (134-144) Potassium Level 3.9mEq/L (3.5-5.2) Chloride Level 100mEq/L (97-108) Carbon Dioxide Level 23mmol/L (18-29) Blood Urea Nitrogen 14mg/dL (6-24) Creatinine 0.79mg/dL (0.76-1.27) Estimat Glomerular Filtration Rate 111mL/min (>59) Glucose Level 107mg/dL (60-99) Calcium Level 9.4mg/dL (8.5-10.1) Magnesium Level 2.1mg/dL (1.6-2.6) Total Bilirubin 0.5mg/dL (0.0-1.2) Aspartate Amino Transf (AST/SGOT) 30U/L (0-50) Alanine Aminotransferase (ALT/SGPT) 85U/L (0-44) Alkaline Phosphatase 89U/L (25-150) Total Protein 7.3g/dL (6.4-8.4) Albumin 4.5g/dL (3.4-5.0) Hold Mendoza Top Tube Received (Received) Troponin T 0.010ug/L (0.0-0.011) ECG Interpretation Time: 23:05 Interpreted by: ED physician Normal ECG Interpretation: Normal rate, Normal sinus rhythm, No acute ischemic changes, Normal QRS, Normal axis, Normal intervals, No change from prior ECGs, Adequate tracing X-Ray Chest Interpretation Chest Xray Interpretation: No acute cardiopulmonary disease. View: Portable, 1 view Interpretation / Wet Read by: Wet read ED physician CT Head Interpretation IMPRESSION: No CT evidence of hemorrhage, mass, or acute infarct. Electronically signed by Harish Whitfield MD Study: Head CT no contrast Interpretation / Wet Read by: Interpret - Radiologist Re-Eval/Medical Decision Med Decision/Clinical Course 46-year-old with significant cardiac history presents just two days post MIBI test with a negative study, with multiple symptoms including vertigo, chest discomfort, and headache. His symptoms are at least partly consistent with anxiety, and he is low risk for acute coronary syndrome two days out from a negative MIBI. However, enzymes 2 are done and are negative, and his EKG is completely normal. CT of the cranium was done given his prolonged history of headache and vertigo, and no significant findings noted. His vertigo is acute and appears to be benign positional vertigo. Detailed instructions for Pradeep maneuvers were given. He was given written material covering the same information. The pounding headache what appeared be migrainous in character. Unlikely sinusitis, particularly without associated sinusitis symptoms. He is discharged on stable condition for follow-up with his PCP. Source of Hx: Old records Time of Eval: 02:14 Re-Evaluation/Progress Note: Discussed lab and imaging results and plan to discharge. Patient is amenable to the plan. Return precautions given. All other questions addressed. Counseled Regarding: Diagnosis, Lab results, Need for follow-up, When/why to return to ED Discharge & Departure Primary Impression: Non-cardiac chest pain Additional Impressions: Gastro-esophageal reflux Vertigo Benign paroxysmal positional vertigo Migraine Anxiety Disposition: Home Discharge Condition All VS Reviewed: Yes Condition: Stable Patient Instructions: Benign Paroxysmal Positional Vertigo (DC), Gastroesophageal Reflux Disease (DC) Additional Instructions: Meclizine up to three times daily for dizziness. See enclosed information about vertigo and corrective maneuvers. Increase your ranitidine to two tablets twice daily for the next ten days before going back to one tablet twice daily Follow-up with your doctor in the office. Referrals: NOPCP (PCP) [facility] Scribe Attestation Portions of this note were transcribed by Stu Granado. IDr. Mcbride, personally performed the history, physical exam and medical decision-making; I reviewed and confirmed the accuracy of the information in the transcribed note. Signed by: Camilo Shetty. 10/19/2016 - 03:15 copies to: [facility] Sal Mcbride MD Oct 18, 2016 22:36 STU GRANADO Oct 18, 2016 23:03
[2016-10-18] MEDS ORDERED: Ondansetron 2 mg/mL 2 mL Inj IVPUSH ONE (23:10)
[2016-10-18] MEDS ORDERED: Pantoprazole 4 mg/mL 10 mL Inj IVPUSH ONE (23:10)
[2016-10-18 23:11] LABS: BASOPHILS % (AUTO) 0.4 % (0-3); EOSINOPHILS % (AUTO) 2.9 % (0-5); MONOCYTES % (AUTO) 14.5 % (4-12); Mean Corpuscular Hemoglobin 30.2 pg (27.0-35.0); Mean Corpuscular Volume 87 fL (81-100); NEUTROPHILS % (AUTO) 55.6 % (40-74); Platelet Count 226 bil/L (150-400)
[2016-10-18 23:28] LABS: TROPONIN T 0.01 ug/L (0.0-0.011)
[2016-10-18 23:39] LABS: Magnesium 2.1 mg/dL (1.6-2.6)
[2016-10-19 00:12] VITALS: BP 150/85; PULSE 72; RESP 14; O2SAT 97
[2016-10-19 01:31] VITALS: BP 124/76; PULSE 78; RESP 14; O2SAT 95
[2016-10-19] MEDS ORDERED: MECL-114 PO (02:25)
[2016-10-19 02:38] VITALS: BP 147/88; PULSE 69; RESP 14; O2SAT 95
--- NOTE | 2016-10-19 08:05 | DRSVH ---
PROCEDURE: CT BRAIN WITHOUT CONTRAST ([id number]) INDICATIONS: facial numnbness TECHNIQUE: Noncontrast 4.5 mm thick angled axial sections acquired from the foramen magnum to the vertex, with c oronal reformats. COMPARISON: [facility], CT, BRAIN W/O CONTRAST, 11/03/2014, 15:07. FINDINGS: Image quality: Excellent. CSF spaces: Basal cisterns are patent. No extra-axial fluid collections. Ventricles are normal in size and shape. CSF density in the posterior fossa and midline, compatible with arachnoid cyst versus prominent foramen magnum. Brain: No midline shift. No intracranial masses or hemorrhage. Mcclellan-white matter interface is norm al. Skull and face: Calvarium and visualized facial bones are intact, without suspicious lesions. Sinuses: Visualized sinuses and mastoids are clear. IMPRESSION: No acute intracranial abnormality. No significant discrepancy with the aircraft armorer radiology preliminary report. Dictated by: Austin Whalen M.D. on 10/19/2016 at 8:00 Approved by: Austin Whalen M.D. on 10/19/2016 at 8:03
--- NOTE | 2016-10-19 08:44 | DRSVH ---
PROCEDURE: X-RAY CHEST ONE VIEW, PORTABLE ([id number]) INDICATIONS: CHEST PAIN TECHNIQUE: One view of the chest was acquired. COMPARISON: [facility], CR, XR CHEST 1VW (PORTABLE), 10/12/2016, 8:26. FINDINGS: Surgical changes and devices: There are post surgical changes in the lower cervical spine again noted . Lungs and pleura: No pleural effusions or pneumothorax. Lungs are clear. Mild elevation of the lef t hemidiaphragm is redemonstrated. Mediastinum: Mediastinal contours appear normal. Heart size is normal. Bones and chest wall: No suspicious bony lesions. Overlying soft tissues appear unremarkable. IMPRESSION: 1. No acute cardiopulmonary disease. Dictated by: Bandar Perez M.D. on 10/19/2016 at 8:42 Approved by: Bandar Perez M.D. on 10/19/2016 at 8:43
== END 2016-10-19 02:39 | disposition home or self-care (01) ==
LOC: SED 22:12
DX: R07.89 Other chest pain (principal); K21.9 Gastro-esophageal reflux disease without esophagitis; H81.10 Benign paroxysmal vertigo, unspecified ear; G43.909 Migraine, unspecified, not intractable, without status migrainosus; F41.9 Anxiety disorder, unspecified; I10 Essential (primary) hypertension; I25.2 Old myocardial infarction; I25.10 Atherosclerotic heart disease of native coronary artery without angina pectoris; E78.5 Hyperlipidemia, unspecified; E73.9 Lactose intolerance, unspecified; Z79.82 Long term (current) use of aspirin; Z88.1 Allergy status to other antibiotic agents; Z88.8 Allergy status to other drugs, medicaments and biological substances; Z91.013 Allergy to seafood
CPT/HCPCS: 36415; 70450; 71010; 80053; 83735; 84484; 85025; 93005; 96374; 96375; 99285; J2405

== ENCOUNTER 2016-11-14 23:42 | Emergency (ER) | payer OTHER ==
[~2016-11-14] VITALS: Ht 180.3 cm; Wt 113.6 kg
[~2016-11-14 23:42] MED LIST changes: +MECL-114 PO
[2016-11-14 23:44] VITALS: BP 179/96; PULSE 82; RESP 16; O2SAT 98
[2016-11-15 00:47] LABS: BASOPHILS % (AUTO) 0.4 % (0-3); MONOCYTES % (AUTO) 13.8 % (4-12); Mean Corpuscular Hemoglobin 31.1 pg (27.0-35.0); Mean Corpuscular Volume 87.1 fL (81-100); Platelet Count 203 bil/L (150-400)
[2016-11-15 01:22] LABS: Creatine Kinase 222 U/L (21-232); Magnesium 2.1 mg/dL (1.6-2.6)
--- NOTE | 2016-11-15 01:45 | ED.REPORT ---
HPI-Chest Pain 40 and Over Date of Service November 15, 2016 ED Provider: Boaz Waite DO Patient is a 46 year old male with a history of CAD, HTN and MN, s/p cardiac stent placement, LAD, in 2016 at [facility] who presents to [facility] Emergency Department c/o chest pressure that started while he was walking tonight with his son. Chest pressure was accompanied with shortness of breath, diaphoresis and left sided neck and arm pain. Patient states he has been having increased chest pressure on exertion lately, but tonight it has been worst. Patient has a family history of CAD: his father had an MN at the age of 40, his brother had an MN at the age of 42, and his uncle from [place] when he was 28 years old. Patient denies cough, nausea, vomiting. He reports significant stress and anxiety over the past month. He has been seen in emergency department last month with atypical chest pain. MN was ruled out with negative troponins and NINI. Patient was hospitalized a week prior to that for acute chest pain for 3 day. Etiology of chest pain was unknown at that time and cardiac workup was negative once again, with negative troponin, normal ECG as well as normal perfusion imaging. Nursing Notes Stated Complaint: CHEST PAIN Chief Complaint: Chest Pain Nursing Notes Reviewed: Yes Allergies: Coded Allergies: Fish Containing Products (Verified Allergy, Severe, Shortness of Breath, ) niacin (Verified Allergy, Severe, Shortness of Breath, 10/18/16) shellfish derived (Verified Allergy, Severe, Shortness of Breath, 10/18/16) lactose (Verified Allergy, Mild, Diarrhea, 10/18/16) erythromycin base (Verified Allergy, Unknown, 10/12/16) Scheduled Aspirin (Aspirin) 81 Mg Tablet 81 MG PO DAILY Atorvastatin (Lipitor) 40 Mg Tablet 40 MG PO HS Carvedilol (Carvedilol) 12.5 Mg Tablet 12.5 MG PO BID Clopidogrel Bisulfate (Plavix) 75 Mg Tablet 75 MG PO DAILY Meclizine (Bonine) 25 Mg Tab.chew 25 MG PO TID Ranitidine (Ranitidine) 150 Mg Capsule 150 MG PO BID General Time Seen by MD: 23:55 Chief Complaint Chest pain, Chest pressure, Diaphoresis, Shortness of breath Hx Obtained From: Patient Arrived By: Walk-in Sudden in Onset?: Yes Onset Occurred: Just prior to arrival Context of Onset: Light exertion Symptom Duration: Since onset Location: : Shoulder left: Substernal Quality: Heaviness Radiation: : Arm left Migration/Movement: Reports: None Severity: Current: Pain level 5 out of 10 Recent Healthcare: Recent hospitalization (10/12/16), Prior workup (10/18/16 in ED) Similar Sx Previous: Yes Risk Factors )( CAD Risk Stratification Family history Hypertension Known CAD Risk factors reviewed PAULA for STEMI PAULA for STEMI: DM / HTN / Angina (1) PAULA for STEMI Score: 1 pt (1.6% 30d mort) Past Medical History Past Medical History "Mild MN" - last year Hypertension CAD Hyperlipidemia Bipolar illness Past Surgical History left anterior descending stent placement cardiac cath Multiple Sclerosis spinal fusion -5-6 hip surgery Family History Reports: Coronary artery disease Smoking History Never Smoker Social History Alcohol Use: "Social" Drug Use: Denies drug use, In recovery Other Social History: 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 Ambulatory Status Independent Review of Systems Constitutional: Denies: Chills, Fatigue, Fever, Weakness - generalized Respiratory: Reports: Dyspnea on exertion, Shortness of breath, Denies: Non-productive cough, Pleuritic pain, Wheezing Cardiovascular: Reports: Chest pain, Dyspnea on exertion, Denies: Edema, Orthopnea, Palpitations, Parox nocturnal dyspnea, Syncope GI: Denies: Abdominal pain, Constipation, Diarrhea, Nausea, Vomiting Musculoskeletal: Denies: Back pain, Extremity pain, Myalgia Skin: Reports Diaphoresis Psychiatric: Reports: Anxiety, Stress Physical Exam Initial Vital Signs Vital Signs (First) Date Time Temp Pulse Resp B/P Pulse Ox O2 Delivery O2 Flow Rate FiO2 11/14/16 23:44 36.9 82 16 179/96 98 Room Air Initial VS: Reviewed, Vital signs abnormal (BP 179/96) General/Constitutional: Awake, Alert, No acute distress, Well appearing, Well developed, Well hydrated, Well nourished, Cooperative Respiratory / Chest: Breath sounds NL, Breath sounds = bilat, No respiratory distress, No rales, No rhonchi, No wheezing Cardiovascular: Heart rate NL, Regular rhythm, Heart sounds NL, No murmurs, Cap refill not delayed, Peripheral circulation NL, Pulses = bilaterally Abdomen: Atraumatic, Soft, Non-tender Neck: Atraumatic, Supple, Full range of motion, No adenopathy, No swelling, Non -tender, No JVD Back: Atraumatic, Non-tender, No muscle spasm, No CVA tenderness Lower Extremity / Pelvis / MS: Atraumatic, No swelling, Non-tender, No erythema Skin: Atraumatic, Warm, Dry Color / Condition: Positive: Lesion present... (abscess, right anterior chest) Neurologic: Oriented X3, Speech NL, CN II - XII intact Psychiatric: Affect NL, Mood NL Abnormal Mood/Affect: Positive: Anxious Interpretation & Diagnostics Lab Results Interpretation Result Diagram: 11/15/16 0035 11/15/16 0035 Test 11/15/16 00:35 11/15/16 03:40 White Blood Count 8.2th/mm3 (3.8-10.1) Red Blood Count 4.72mil/mm3 (4.40-5.80) Hemoglobin 14.7g/dL (13.8-17.2) Hematocrit 41.1% (41.0-50.0) Mean Corpuscular Volume 87.1fL (81-100) Mean Corpuscular Hemoglobin 31.1pg (27.0-35.0) Mean Corpuscular Hemoglobin Concent 35.8% (32.0-37.0) Red Cell Distribution Width 12.4% (12.3-15.4) Platelet Count 203bil/L (150-400) Neutrophils (%) (Auto) 58.0% (40-74) Lymphocytes (%) (Auto) 25.6% (14-46) Monocytes (%) (Auto) 13.8% (4-12) Eosinophils (%) (Auto) 2.0% (0-5) Basophils (%) (Auto) 0.4% (0-3) Prothrombin Time 10.1sec (8.1-12.5) Prothromb Time International Ratio 0.95ratio Activated Partial Thromboplast Time 29.6sec (22.8-33.0) D-Dimer < 0.50mg/L FEU (<0.50) Sodium Level 137mEq/L (134-144) Potassium Level 4.1mEq/L (3.5-5.2) Chloride Level 101mEq/L (97-108) Carbon Dioxide Level 23mmol/L (18-29) Blood Urea Nitrogen 15mg/dL (6-24) Creatinine 0.92mg/dL (0.76-1.27) Estimat Glomerular Filtration Rate 93mL/min (>59) Glucose Level 133mg/dL (60-99) Calcium Level 9.0mg/dL (8.5-10.1) Magnesium Level 2.1mg/dL (1.6-2.6) Total Bilirubin 0.3mg/dL (0.0-1.2) Aspartate Amino Transf (AST/SGOT) 25U/L (0-50) Alanine Aminotransferase (ALT/SGPT) 39U/L (0-44) Alkaline Phosphatase 95U/L (25-150) Total Creatine Kinase 222U/L (21-232) Creatine Kinase MB 5.1ng/mL (0.0-10.4) Creatine Kinase MB % % (0.0-5.0) Total Protein 6.9g/dL (6.4-8.4) Albumin 4.3g/dL (3.4-5.0) Troponin T 0.010ug/L (0.0-0.011) Lab values outside NL range: no clinical significance. ECG Interpretation Interpreted by: ED physician Normal ECG Interpretation: Normal ECG w/ rate of... (78) Abnormal T wave or ST segment: Non-specific ST changes X-Ray Chest Interpretation Chest Xray Interpretation: No acute cardiopulmonary disease Interpretation / Wet Read by: Wet read ED physician Re-Eval/Medical Decision Med Decision/Clinical Course In summary, this is a 46 year old male with family history of CAD who presents with chest pain, just few weeks after his recent hospitalization s/p nuclear perfusion imaging study test with negative study, and a recent ED visit with again, negative work up for ACS. Preliminary work up for ACS is negative so far. Patient desires to go to lab animal technologist to rule out "active blockages." Cardiology, Dr. Paige, has been consulted, and she advised to discharge patient if work up continues to be negative (second negative troponin) and instruct patient to follow up with cardiology clinic as an outpatient for further evaluation and management. Second troponin pending. Time of Eval: 02:05 Patient Status: Condition improved (chest pressure 3/10; BP 119/60) Discharge & Departure Primary Impression: Chest pain with low risk of acute coronary syndrome Patient Instructions: Chest Pain (ED) Additional Instructions: There is no evidence on your evaluation tonight of heart attack. You may have a narrow blood vessel in your heart but there has been no damage to the heart muscle. Dr. Piage recommends that you call her office to schedule an outpatient catheterization. Return to the emergency room if you have significant worsening. Referrals: NOPCP (PCP) Shahida Paige MD Attending Statement Case was presented to me by my resident. I spoke with Ko myself. I agree with the history and physical examination. This a very pleasant 46-year-old male who has coronary artery disease and atypical chest symptoms. He certainly could have chronic angina/exertional angina. He was however recently admitted and had a normal nuclear medicine stress test. This was within a month I believe. His EKG and serial troponins are negative. This gentleman requested that we admit him for cardiac catheterization. I explained to him that that was not my decision and we will consult the hospitalist and manager play. After consultation hospitalist and manager play it was recommended that we discharge him home and have close outpatient follow-up and the manager play will evaluate him in the office. I did ask them to return if the pain worsens or if he has any new or worsening symptoms. copies to: Shahida Paige MD, Oksana S DO November 15, 2016 01:45 Bradford Nuñez MD November 15, 2016 04:17 NOE KILGORE November 15, 2016 04:23 Boaz Waite DO November 15, 2016 18:16
[2016-11-15] MEDS ORDERED: Nitroglycerin 2% 1 Gm Ointment TOPICAL ONE (02:30)
[2016-11-15 02:43] LABS: INR 0.95 ratio
[2016-11-15 04:29] VITALS: BP 136/78; PULSE 82; RESP 14; O2SAT 98
--- NOTE | 2016-11-15 08:42 | DRSVH ---
PROCEDURE: X-RAY CHEST ONE VIEW, PORTABLE ([id number]) INDICATIONS: Chest pain TECHNIQUE: One view of the chest was acquired. COMPARISON: [facility], CR, XR CHEST 1VW (PORTABLE), 10/18/2016, 22:30. FINDINGS: Surgical changes and devices: Postsurgical changes in the lower cervical spine are again noted. Lungs and pleura: No pleural effusions or pneumothorax. Lungs are clear. There is mild elevation o f the left hemidiaphragm redemonstrated. Mediastinum: Mediastinal contours appear normal. Heart size is normal. Bones and chest wall: No suspicious bony lesions. Overlying soft tissues appear unremarkable. IMPRESSION: 1. No acute cardiopulmonary disease. Dictated by: Bandar Perez M.D. on 11/15/2016 at 8:40 Approved by: Bandar Perez M.D. on 11/15/2016 at 8:41
== END 2016-11-15 04:35 | disposition home or self-care (01) ==
LOC: SED 23:42
DX: R07.89 Other chest pain (principal); R06.02 Shortness of breath; I11.9 Hypertensive heart disease without heart failure; I25.10 Atherosclerotic heart disease of native coronary artery without angina pectoris; I25.2 Old myocardial infarction; E78.5 Hyperlipidemia, unspecified; F31.9 Bipolar disorder, unspecified; Z79.82 Long term (current) use of aspirin; Z95.5 Presence of coronary angioplasty implant and graft; Z88.1 Allergy status to other antibiotic agents; Z88.8 Allergy status to other drugs, medicaments and biological substances; Z91.013 Allergy to seafood